=== PATIENT | female | born 1945 | race Caucasian/White ===

== ENCOUNTER 2021-07-07 10:57 | Inpatient (IN) | payer MEDICARE ==
[~2021-07-07] VITALS: Ht 160 cm; Wt 50.8 kg
[2021-07-07 11:32] LABS: BASOPHILS % (AUTO) 0.2 % (0.0-5.0); HEMATOCRIT 28.8 % (36-48); MEAN CORPUSCULAR HEMOGLOBIN 25.9 pg (27.0-33.0); MEAN CORPUSCULAR HGB CONC 30.2 g/dL (32.0-36.0); MEAN CORPUSCULAR VOLUME 85.7 fL (79-99); MONOCYTES % (AUTO) 4.7 % (3.0-13.0); NEUTROPHILS % (AUTO) 87.6 % (40.0-77.0); PLATELET COUNT (AUTO) 282 K/uL (130-400); RED BLOOD CELL COUNT(AUTO) 3.36 MIL/uL (4.00-5.50); RED CELL DISTRIBUTION WIDTH 15.5 % (11.0-15.5); WHITE BLOOD COUNT (AUTO) 8.1 K/uL (4.8-10.8)
[2021-07-07 11:44] LABS: CREATININE 1.2 mg/dL (0.5-1.5); POTASSIUM 3.7 mmol/L (3.5-5.1)
[2021-07-07 11:54] LABS: ALBUMIN 3.1 g/dL (3.5-5.0); BILIRUBIN,TOTAL 0.4 mg/dL (0.2-1.0); TOTAL PROTEIN, SERUM 6.3 g/dL (6.0-8.3)
[2021-07-07] MEDS ORDERED: PANTOPRAZOLE 40 MG/VIAL IVP ONE (12:30)
[2021-07-07 13:04] LABS: INR 0.96 (0.85-1.15); PROTHROMBIN TIME 10.5 SEC (9.6-11.6)
[2021-07-07 13:06] LABS: PARTIAL THROMBOPLASTIN TIME 20.5 SEC (26.3-35.5)
[2021-07-07] MEDS ORDERED: PANTOPRAZOLE 40 MG/VIAL ONE ×2 (13:34→23:36)
[2021-07-07] MEDS ORDERED: 0.9%NACL 1000ML 1,000 ML IV ONE (13:35)
[2021-07-07] MEDS: PANTOPRAZOLE 40MG INJ 80 MG in 0.9%NACL 100ML 100 ML IVP SCH ×2 (13:56→23:43)
[2021-07-07] MEDS ORDERED: 0.9%NACL 1000ML 1,000 ML IV SCH (15:00)
[2021-07-07] MEDS: OCTREOTIDE ACETATE 1,250 MCG in 0.9% NACL 250ML 250 ML IV SCH (16:09)
[2021-07-08] VITALS (25 sets, daily range): BP systolic 105–162; BP diastolic 55–86
[2021-07-08] MEDS ORDERED: PRED20TA3 PO (06:08)
[2021-07-08] MEDS: OCTREOTIDE ACETATE 1,250 MCG in 0.9% NACL 250ML 250 ML IV SCH (09:05)
[2021-07-08] MEDS ORDERED: MIDAZOLAM HCL 1 MG/ML 2ML VIAL ONE (11:25)
[2021-07-08] MEDS ORDERED: FENTANYL CITRATE PF 50 MCG/1 ML 2ML VIAL ONE (11:26)
[2021-07-08] MEDS ORDERED: PROPOFOL 10 MG/ML 20ML VIAL IV ONE (11:42)
[2021-07-08] MEDS ORDERED: COMPOUND IV REFRIGERATED 1 EACH IVSOLN MISC PRN (12:30)
[2021-07-08 13:07] LABS: HEMATOCRIT 29.6 % (36-48); MEAN CORPUSCULAR HEMOGLOBIN 26.2 pg (27.0-33.0); MEAN CORPUSCULAR HGB CONC 29.4 g/dL (32.0-36.0); MEAN CORPUSCULAR VOLUME 89.2 fL (79-99); PLATELET COUNT (AUTO) 242 K/uL (130-400); RED BLOOD CELL COUNT(AUTO) 3.32 MIL/uL (4.00-5.50); RED CELL DISTRIBUTION WIDTH 15.1 % (11.0-15.5); WHITE BLOOD COUNT (AUTO) 5.2 K/uL (4.8-10.8)
[2021-07-08] MEDS ORDERED: PANTOPRAZOLE 40 MG TAB DR PO SCH (13:30)
[2021-07-08 13:38] LABS: EOSINOPHILS % (MANUAL) 6 % (1-6); LYMPHOCYTES % (MANUAL) 10 % (22-44); MAN.DIFF COMMENT-IMPRESSION MANUAL DIFFERENTIAL; MONOCYTES % (MANUAL) 5 % (2-9); SEGMENTED NEUTROPHILS % 79 % (40-70)
[2021-07-08 13:40] LABS: PLATELET MORPHOLOGY COMMENT ADEQUATE
== END 2021-07-08 17:50 | disposition home or self-care (01) | DRG 378 ==
LOC: EDH 10:57 → EDHIP 12:37 → 3DH 23:10
PROVIDERS: ADMIT Internal Medicine Hematology & Oncology; ATTEND Internal Medicine Hematology & Oncology
PROC: 0DJ08ZZ Inspection of Upper Intestinal Tract, Via Natural or Artificial Opening Endoscopic (ICD-10-PCS; principal; 2021-07-08)
DX: K92.1 Melena (principal); D62 Acute posthemorrhagic anemia; M06.9 Rheumatoid arthritis, unspecified; K21.00 Gastro-esophageal reflux disease with esophagitis, without bleeding
CPT/HCPCS: 36415; 43235; 80053; 82550; 83874; 84484; 85025; 85610; 85730; 86850; 86900; 86901; 86923; 93005; A4606; C9113; G0378; J2250; J2354; J2704; J3010; J7030; J7050

== ENCOUNTER 2022-04-19 06:28 | Observation (INO) | payer MEDICARE ==
[2022-04-13 11:46] LABS: BASOPHILS % (AUTO) 0.2 % (0.0-5.0); EOSINOPHILS % (AUTO) 0.1 % (0.0-8.0); HEMATOCRIT 43.5 % (36-48); LYMPHOCYTES % (AUTO) 3.9 % (21.0-51.0); MEAN CORPUSCULAR HEMOGLOBIN 29.3 pg (27.0-33.0); MEAN CORPUSCULAR HGB CONC 32.4 g/dL (32.0-36.0); MEAN CORPUSCULAR VOLUME 90.2 fL (79-99); MONOCYTES % (AUTO) 0.8 % (3.0-13.0); NEUTROPHILS % (AUTO) 94.3 % (40.0-77.0); PLATELET COUNT (AUTO) 258 K/uL (130-400); RED BLOOD CELL COUNT(AUTO) 4.82 MIL/uL (4.00-5.50); RED CELL DISTRIBUTION WIDTH 13.8 % (11.0-15.5)
[2022-04-13 11:56] LABS: CREATININE 1.1 mg/dL (0.5-1.5); POTASSIUM 4.3 mmol/L (3.5-5.1)
[2022-04-18 09:51] VITALS: BP 183/86
[2022-04-19] VITALS (24 sets, daily range): BP systolic 126–214; BP diastolic 63–108
[~2022-04-19] VITALS: Ht 160 cm; Wt 53.5 kg
[~2022-04-19 06:28] MED LIST: CEFAZOLIN SODIUM 1 GM VIAL IVP SCH; LACTATED RINGERS 1000ML 1,000 ML IV SCH; PANT40TA54 PO; PRED20TA3 PO
[2022-04-19] MEDS ORDERED: MIDAZOLAM HCL 1 MG/ML 2ML VIAL ONE (08:15)
[2022-04-19] MEDS ORDERED: PROPOFOL 10 MG/ML 20ML VIAL IV ONE (08:15)
[2022-04-19] MEDS ORDERED: FENTANYL CITRATE PF 50 MCG/1 ML 2ML VIAL ONE (08:15)
[2022-04-19] MEDS ORDERED: ROCURONIUM 10MG/1ML SYR 10 MG/ML ML ONE (08:15)
[2022-04-19] MEDS ORDERED: SUCCINYLCHOLINE 200MG/10ML SYR ONE (08:15)
[2022-04-19] MEDS ORDERED: CEFAZOLIN SODIUM 2 GM VIAL IV ONE (08:22)
[2022-04-19] MEDS ORDERED: HYDRALAZINE 20MG/ML VIAL ONE (09:21)
[2022-04-19] MEDS ORDERED: HYDROCODONE/ACETAMINOPHEN 10/325 MG TAB PO PRN (09:30)
[2022-04-19] MEDS ORDERED: IBUPROFEN 600 MG TABLET PO PRN (09:30)
[2022-04-19] MEDS ORDERED: ONDANSETRON 4MG INJ IVP PRN (09:30)
[2022-04-19] MEDS ORDERED: MEPERIDINE-PF 25 MG/ML SYG ONE (09:57)
[2022-04-19] MEDS ORDERED: KETOROLAC 15MG/ML VIAL (15MG/ML) ONE (09:57)
== END 2022-04-19 16:35 | disposition home or self-care (01) ==
LOC: DAH 06:28 → DAHIP 06:29 → DAH 06:29 → 4DH 10:41 → 4BH 14:34 → 4DH 14:43
PROVIDERS: ADMIT Orthopaedic Surgery; ATTEND Orthopaedic Surgery
DX: T84.84XA Pain due to internal orthopedic prosthetic devices, implants and grafts, initial encounter (principal); Z20.822 Contact with and (suspected) exposure to COVID-19; Y83.1 Surgical operation with implant of artificial internal device as the cause of abnormal reaction of the patient, or of later complication, without mention of misadventure at the time of the procedure; I10 Essential (primary) hypertension; Z79.899 Other long term (current) drug therapy
CPT/HCPCS: 80048; 85025; 87426; 36415; 20680; 96374; 73610; 97161; 97116; A6260; G0378 ×6; J7030; J0690 ×2; J7120; J3010; J0360; J2250; J2704; J2405; J2175; J1885; A6223; A5120; A4215; A4223; A4222; A4221; A4663; J0330

== ENCOUNTER 2023-07-12 12:06 | Emergency (ER) | payer OTHER, MEDICARE ==
[~2023-07-12] VITALS: Ht 160 cm; Wt 50.8 kg
[~2023-07-12 12:06] MED LIST changes: -CEFAZOLIN SODIUM 1 GM VIAL IVP SCH; -LACTATED RINGERS 1000ML 1,000 ML IV SCH
[2023-07-12 13:07] LABS: BASOPHILS # (AUTO) 0.02 K/uL (0.00-0.20); BASOPHILS % (AUTO) 0.1 % (0.0-5.0); EOSINOPHILS # (AUTO) 0.01 K/uL (0.00-0.70); EOSINOPHILS % (AUTO) 0.1 % (0.0-8.0); IMMATURE GRANULOCYTE ABSOLUTE 0.13 K/uL (0-1); LYMPHOCYTES # (AUTO) 0.3 K/uL (1.0-4.8); LYMPHOCYTES % (AUTO) 1.8 % (21.0-51.0); MEAN CORPUSCULAR HEMOGLOBIN 28.4 pg (27.0-33.0); MEAN CORPUSCULAR HGB CONC 31.4 g/dL (32.0-36.0); MEAN CORPUSCULAR VOLUME 90.7 fL (79-99); MONOCYTES # (AUTO) 0.1 K/uL (0.1-1.0); MONOCYTES % (AUTO) 0.5 % (3.0-13.0); NEUTROPHILS # (AUTO) 16.3 K/uL (1.8-7.7); NEUTROPHILS % (AUTO) 96.7 % (40.0-77.0); PLATELET COUNT (AUTO) 314 K/uL (130-400); RED BLOOD CELL COUNT(AUTO) 4.08 MIL/uL (4.00-5.50); RED CELL DISTRIBUTION WIDTH 15.2 % (11.0-15.5); WHITE BLOOD COUNT (AUTO) 16.9 K/uL (4.8-10.8)
[2023-07-12 13:21] LABS: CREATININE 1.6 mg/dL (0.5-1.5); POTASSIUM 4.3 mmol/L (3.5-5.1)
[2023-07-12 13:25] LABS: ALBUMIN 3.2 g/dL (3.5-5.0); BILIRUBIN,TOTAL 0.5 mg/dL (0.2-1.0); TOTAL PROTEIN, SERUM 6.8 g/dL (6.0-8.3)
[2023-07-12 13:34] LABS: APPEARANCE,URINE CLEAR (CLEAR); BILIRUBIN,URINE NEGATIVE (NEGATIVE); COLOR,URINE LIGHT-YELLOW (YELLOW); GLUCOSE, URINE (UA) TRACE mg/dL (NEGATIVE); KETONES,URINE NEGATIVE (NEGATIVE); LEUKOCYTE ESTERASE ,URINE NEGATIVE Leu/uL (NEGATIVE); NITRATE,URINE NEGATIVE (NEGATIVE); OCCULT BLOOD,URINE NEGATIVE (NEGATIVE); PROTEIN,URINE NEGATIVE (NEGATIVE); UROBILINOGEN,URINE 0.2 mg/dL (0.2-1.0)
[2023-07-12 13:42] LABS: ADD UA MICROSCOPIC YES
[2023-07-12 13:44] LABS: BACTERIA,URINE None Seen /HPF (None Seen); SQUAMOUS EPITHELIAL CELL,UR 0-2 /HPF (0-2); WBC,URINE 0-1 /HPF (0-1)
[2023-07-12] MEDS ORDERED: IBUP-2077 PO (15:10)
[2023-07-12 15:58] VITALS: BP 132/78; PULSE 78; RESP 18; O2SAT 98
== END 2023-07-12 15:59 | disposition home or self-care (01) ==
LOC: EDH 12:06
DX: M06.9 Rheumatoid arthritis, unspecified (principal); N20.0 Calculus of kidney; D72.829 Elevated white blood cell count, unspecified
CPT/HCPCS: 36415; 73070; 74176; 80053; 81001; 83690; 85025